=== PATIENT | male | born 1990 | race African-American/Black ===

== ENCOUNTER 2022-12-16 23:05 | Inpatient (IN) | payer MEDICAID ==
[~2022-12-16] VITALS: Ht 180.3 cm; Wt 81.6 kg
[2022-12-17 00:18] LABS: HEMATOCRIT. 47.2 % (42.0-52.0); HEMOGLOBIN. 15.4 g/dL (14.0-18.0); MEAN CORPUSCULAR HEMOGLOBIN 27.3 pg (28.0-32.0); MEAN CORPUSCULAR VOLUME 83.8 fL (80.0-94.0); MEAN PLATELET VOLUME 8.1 fl (7.4-10.4); PLATELET 289 x1000/uL (130-400); RED BLOOD CELL COUNT 5.64 mill/uL (4.7-6.1); RED CELL DISTRIBUTION WIDTH 13.9 % (11.6-14.6)
[2022-12-17 00:29] LABS: CHLORIDE 91 mEq/L (98-107)
[2022-12-17 00:35] LABS: ETHANOL BLOOD < 10 mg/dL
[2022-12-17] MEDS ORDERED: DEXT 5% WATER + KCL 40MEQ/L 1,000 ML IV ONE (01:30)
[2022-12-17 02:11] LABS: PLATELET ESTIMATE NORMAL
[2022-12-17] MEDS ORDERED: DIPHENHYDRAMINE 50MG/ML VIAL IV NR (03:15)
[2022-12-17] MEDS ORDERED: LORAZEPAM 2MG/ML CPJ IV NR (03:15)
[2022-12-17] MEDS: OLANZAPINE 5MG TABLET ODT PO SCH ×2 (11:40→17:00)
[2022-12-17 12:22] LABS: CHLORIDE 94 mEq/L (98-107)
[2022-12-17] MEDS: POTASSIUM CHLORIDE 20MEQ TABLET SR PO NR (13:30)
[2022-12-17 13:40] LABS: PHOSPHORUS 3.4 mg/dL (2.5-4.9)
[2022-12-17 16:37] LABS: CLARITY URINE CLOUDY (CLEAR); COLOR URINE YELLOW (YELLOW); KETONES URINE NEGATIVE (NEGATIVE); LEUKOCYTE ESTERASE URINE NEGATIVE (NEGATIVE); NITRITE URINE NEGATIVE (NEGATIVE); OCCULT BLOOD URINE TRACE (NEGATIVE); PH URINE 5.5 (4.5-8.0); PROTEIN URINE TRACE (NEGATIVE); SPECIFIC GRAVITY URINE 1.003 (1.005-1.030); UROBILINOGEN URINE 0.2 E.U./dL (0.2-1.0)
[2022-12-17] MEDS ORDERED: ONDANSETRON HCL 4MG/2ML INJ IV PRN (17:15)
[2022-12-17] MEDS ORDERED: POTASSIUM CHLORIDE INJ 40 MEQ in DEXT 5% WATER 250 ML IV ONE (17:15)
[2022-12-17] MEDS: KCL 20MEQ/100ML X 2 FOR TOTAL KCL 40MEQ/200ML IV SCH ×2 (17:15→18:35)
[2022-12-17] MEDS ORDERED: ACETAMINOPHEN 325MG TABLET PO PRN (17:15)
[2022-12-17 17:22] LABS: *AMPHETAMINES SCREEN URINE NEGATIVE (NEGATIVE); *BARBITURATES SCREEN URINE NEGATIVE (NEGATIVE); *BENZODIAZEPINES SCREEN URINE NEGATIVE (NEGATIVE); *COCAINE SCREEN URINE NEGATIVE (NEGATIVE); CANNABINOID URINE SCREEN NEGATIVE (NEGATIVE); METHADONE URINE SCREEN NEGATIVE (NEGATIVE); OPIATES URINE SCREEN NEGATIVE (NEGATIVE); PHENCYCLIDINE URINE SCREEN NEGATIVE (NEGATIVE)
[2022-12-17] MEDS ORDERED: LORAZEPAM 2MG/ML CPJ IM PRN (18:15)
[2022-12-18 06:15] LABS: BASOPHILS % 0.3 % (0.0-2.0); EOSINOPHILS % 0.9 % (0.0-5.0); HEMATOCRIT. 40.1 % (42.0-52.0); HEMOGLOBIN. 13.4 g/dL (14.0-18.0); LYMPHOCYTES % 18.4 % (20.0-50.0); MEAN CORPUSCULAR HEMOGLOBIN 27.4 pg (28.0-32.0); MEAN CORPUSCULAR VOLUME 82.1 fL (80.0-94.0); MEAN PLATELET VOLUME 7.8 fl (7.4-10.4); MONOCYTES % 11.2 % (2.0-8.0); NEUTROPHILS % 69.2 % (40.0-76.0); PLATELET 260 x1000/uL (130-400); RED BLOOD CELL COUNT 4.89 mill/uL (4.7-6.1); RED CELL DISTRIBUTION WIDTH 13.5 % (11.6-14.6)
[2022-12-18 06:23] LABS: CHLORIDE 97 mEq/L (98-107)
[2022-12-18] MEDS ORDERED: KCL 20MEQ/100ML X 2 FOR TOTAL KCL 40MEQ/200ML IV SCH (07:00)
[2022-12-18] MEDS: OLANZAPINE 5MG TABLET ODT PO SCH ×2 (09:34→17:57)
[2022-12-18] MEDS ORDERED: POTASSIUM CHLORIDE 20MEQ TABLET SR PO NR (10:00)
[2022-12-18 11:29] VITALS: BP 111/63
[2022-12-18 12:00] VITALS: BP 111/63
[2022-12-18 20:00] VITALS: BP 109/75
[2022-12-19] VITALS: BP 100/58
[2022-12-19 04:00] VITALS: BP 110/68
[2022-12-19 08:00] VITALS: BP 119/78
[2022-12-19] MEDS: OLANZAPINE 5MG TABLET ODT PO SCH ×3 (08:30→17:00)
[2022-12-19] MEDS ORDERED: POTASSIUM CHLORIDE 20MEQ TABLET SR PO NR (10:30)
[2022-12-19 12:00] VITALS: BP 120/75
[2022-12-19 16:00] VITALS: BP 105/63
[2022-12-19 20:00] VITALS: BP 107/81
[2022-12-20] VITALS: BP 104/56
[2022-12-20 03:50] VITALS: BP 112/80
[2022-12-20 08:00] VITALS: BP 119/75
[2022-12-20] MEDS: OLANZAPINE 5MG TABLET ODT PO SCH ×2 (09:00→17:00)
[2022-12-20 12:00] VITALS: BP 105/74
[2022-12-20 16:00] VITALS: BP 105/57
[2022-12-20 20:00] VITALS: BP 111/80
[2022-12-21] VITALS: BP 120/77
[2022-12-21 04:00] VITALS: BP 113/71
[2022-12-21 08:00] VITALS: BP 133/55
[2022-12-21] MEDS: OLANZAPINE 5MG TABLET ODT PO SCH ×3 (08:17→16:02)
[2022-12-21 12:07] VITALS: BP 121/75
[2022-12-21] MEDS ORDERED: SERTRALINE HCL 50MG TABLET PO SCH (13:30)
[2022-12-21] MEDS ORDERED: SERT50TA PO (15:21)
[2022-12-21] MEDS ORDERED: POTASSIUM CHLORIDE 20MEQ TABLET SR PO NR (15:30)
[2022-12-21 16:00] VITALS: BP 130/74
[2022-12-21 16:17] VITALS: BP 121/75
[2022-12-21 17:06] LABS: HEMATOCRIT 39.9 % (42.0-52.0); MEAN CORPUSCULAR HEMOGLOBIN 27.3 pg (28.0-32.0); MEAN CORPUSCULAR VOLUME 83.6 fL (80.0-94.0); PLATELET 282 x1000/uL (130-400); RED BLOOD CELL COUNT 4.77 mill/uL (4.7-6.1); RED CELL DISTRIBUTION WIDTH 13.7 % (11.6-14.6)
[2022-12-21 17:40] LABS: CHLORIDE 104 mEq/L (98-107)
== END 2022-12-21 18:40 | disposition home or self-care (01) | DRG 52 ==
LOC: ER 23:05 → MICUSO 12-17 03:21 → EDBEDREQ 12-17 03:50 → 7EST 12-18 09:01
PROVIDERS: ADMIT Internal Medicine; ATTEND Internal Medicine
DX: G93.41 Metabolic encephalopathy (principal); N17.0 Acute kidney failure with tubular necrosis; F29 Unspecified psychosis not due to a substance or known physiological condition; E87.6 Hypokalemia; Z20.822 Contact with and (suspected) exposure to COVID-19; D72.829 Elevated white blood cell count, unspecified
CPT/HCPCS: 36415; 71045; 80048; 80053; 80305; 80307; 80320; 80329; 81003; 83735; 84100; 85025; 85027; 96365; 96375; 99285; C1893; J1200; J2060; J3480; J7060; U0003; U0005; G0480